=== PATIENT | female | born 1935 | race Hispanic/Latino ===

== ENCOUNTER 2021-02-06 14:48 | Outpatient (CLI) | payer MEDICARE ==
--- NOTE | 2021-02-06 15:35 | XRay Report ---
CHEST 2 VIEWS INDICATION: SHORTNESS OF BREATH R06.02. COMPARISON: None FINDINGS: Support devices: None. Heart: Heart size is at the upper limits of normal. Lungs/pleura: The lungs are hyperinflated consistent with moderate to severe COPD. No evidence for pn eumonia, pleural effusion or pneumothorax. Additional findings: None. IMPRESSION: Borderline heart size. COPD. Signer Name: Desmond Amaya Jr, MD Signed: 02/06/2021 3:31 PM Workstation Name: [id number]
== END 2021-02-06 14:49 | disposition home or self-care (01) ==
LOC: SPVIMAG 14:48
PROVIDERS: ATTEND Internal Medicine
DX: J44.9 Chronic obstructive pulmonary disease, unspecified (principal); J98.11 Atelectasis
CPT/HCPCS: 71046